=== PATIENT | female | born 1945 | race Caucasian/White ===

== ENCOUNTER → 2018-03-24 | Day surgery (SDC) | payer OTHER ==
[~2018-03-24] MED LIST: AMOX TR-K CLV 81 TAB PO; ATENOLOL25 MG PO; ATROVENT 00.5 MG/2.5 IH; CALCIUM 500 +1 EAC2 PO; CIPRO500 MG PO; FENOFIBRATE160 MG PO; FLAGYL500MG PO; GLUMETZA1000 MG PO; HUMULIN 70/30 V10 ML SQ; HYZAAR 100-251 UDTAB PO; NEURONTIN600 MG PO; PERCOCET 5/3251 TAB PO; PLETAL100 MG PO; SINGULAIR10 MG PO; SYNTHROID50 MCG PO; TYLENOL EXTRA500 MG PO; VITAMIN C500 M1 PO; ZANAFLEX6 MG PO
== END | disposition home or self-care (01) ==
LOC: ADM 03-18 13:30 → AMB-ENDOS 07:25
DX: D12.4 Benign neoplasm of descending colon (principal); D12.3 Benign neoplasm of transverse colon; K57.30 Diverticulosis of large intestine without perforation or abscess without bleeding

== ENCOUNTER 2018-04-06 10:54 | Outpatient (CLI) | payer OTHER | END 2018-04-06 16:00 | disposition home or self-care (01) | LOC: TOM 10:54 | DX: K43.0 Incisional hernia with obstruction, without gangrene (principal); K57.30 Diverticulosis of large intestine without perforation or abscess without bleeding; R10.33 Periumbilical pain ==